=== PATIENT | female | born 1975 | race Caucasian/White ===

== ENCOUNTER 2018-01-09 10:03 | Outpatient (CLI) | payer OTHER ==
--- NOTE | 2018-01-09 11:10 | Mammography Report ---
DIAGNOSTIC BILATERAL MAMMOGRAM: 01/09/2018 CLINICAL INDICATION: Localized left breast pain. TECHNIQUE: Bilateral CC, MLO, laterally exaggerated CC, left true lateral views. Markers were placed at the site of maximal tenderness identified by the patient. This is the patient's baseline examination. FINDINGS: The breasts demonstrate heterogeneously dense fibroglandular parenchyma bilaterally. No suspicious masses, clustered microcalcifications, or regions of architectural distortion are identified. Specifically, no mammographic abnormality is appreciated in the left upper outer anterior breast, at the site indicated by the markers. Please also refer to left breast ultrasound of the same day. IMPRESSION: NEGATIVE EXAMINATION. RECOMMENDATION: Routine annual screening unless otherwise clinically indicated. BIRADS CATEGORY 1-NEGATIVE. STANDARD QUALIFYING STATEMENTS: 1. This examination was reviewed with the aid of Computer-Aided Detection (CAD). 2. A negative or benign imaging report should not delay biopsy if clinically suspicious findings are present. Consider surgical consultation if warranted. More than 5% of cancers are not identified by imaging. 3. Dense breasts may obscure an underlying neoplasm. TD: 01/09/2018 11:09
--- NOTE | 2018-01-09 11:12 | Ultrasound Report ---
LEFT BREAST ULTRASOUND: 01/09/2018 CLINICAL INDICATION: Localized left breast pain. TECHNIQUE: Real-time scanning was performed with parts sales representative static images obtained. FINDINGS: Ultrasound of the region of pain identified by the patient was performed. Unremarkable parenchymal lobules are seen. No discrete solid or cystic mass is identified. No sonographically suspicious findings are seen. IMPRESSION: NEGATIVE EXAMINATION. RECOMMENDATION: Routine annual screening unless otherwise clinically indicated. BIRADS CATEGORY 1 - NEGATIVE. TD: 01/09/2018 11:11
== END 2018-01-09 10:04 | disposition home or self-care (01) ==
LOC: DI 10:03
PROVIDERS: ATTEND Obstetrics & Gynecology
DX: N64.4 Mastodynia (principal)
CPT/HCPCS: 76642; 77066

== ENCOUNTER 2020-07-13 10:07 | Outpatient (CLI) | payer OTHER ==
--- NOTE | 2020-07-14 13:38 | Mammography Report ---
BILATERAL DIGITAL SCREENING MAMMOGRAM 3D/2D: 07/13/2020 CLINICAL: Routine screening. Comparison is made to exams dated: 01/09/2018 mammogram and 01/09/2018 ultrasound - [facility]. The tissue of both breasts is extremely dense, which lowers the sensitivity of mammograp hy. No significant masses, calcifications, or other findings are seen in either breast. There has been no significant interval change. IMPRESSION: NEGATIVE There is no mammographic evidence of malignancy. A 1 year screening mammogram is recommended. This exam was interpreted at Station ID: [id number]. NOTE: For mammograms, a report in lay terms will be sent to the patient. Approximately 15% of breast malignancies will not be visualized mammographically. In the management of a palpable breast mass, a negative mammogram must not discourage biopsy of a clinically suspicious lesion. Electronically Signed By: Jude Gallego M.D. aty/penrad:07/13/2020 10:45:25 ACR BI-RADS Category 1: Negative 3341F PARENCHYMAL PATTERN: (VD) - The breast(s) demonstrate(s) extremely dense parenchyma, limiting the sen sitivity of mammography. BI-RADS CATEGORY: (1) - 1 RECOMMENDATION: (ANNUAL) - Recommend routine annual screening mammography. [id number] 1 year screening LATERALITY: (B)
== END 2020-07-13 10:08 | disposition home or self-care (01) ==
LOC: DI 10:07
PROVIDERS: ATTEND Obstetrics & Gynecology
DX: Z12.31 Encounter for screening mammogram for malignant neoplasm of breast (principal)
CPT/HCPCS: 77063; 77067

== ENCOUNTER 2022-11-19 11:37 | Outpatient (CLI) | payer OTHER ==
--- NOTE | 2022-11-19 18:16 | Ultrasound Report ---
PROCEDURE: Pelvic w/Transvaginal INDICATIONS: PELVIC PAIN TECHNIQUE: Real-time scanning was performed of the pelvic organs, with image documentation. Additional endovagi nal scanning was necessary due to incomplete visualization of the adnexal and endometrial structures by transabdominal scanning. COMPARISON: None. FINDINGS: Uterus: Uterus is anteverted and normal in size at 7.6 x 4.7 x 5.5 cm. The myometrium is homogeneou s. The endometrium measures 5.1 mm in combined thickness. Intrauterine device in good position Ovaries: The right ovary measures 2.9 x 2.2 x 2.4 cm, with a calculated ovarian volume of 0.0 cc. T he left ovary measures 2.0 x 1.8 x 1.2 cm, with a calculated ovarian volume of 2.3 cc. The ovaries h ave a normal sonographic appearance. Less than 12 follicles can be seen in each ovary. No adnexal m asses are seen. Other: No pathologic free abdominal or pelvic fluid. IMPRESSION: Intrauterine device in good position Reviewed by: Luis Davidson MD on 11/19/2022 5:15 PM AKST Approved by: Luis Davidson MD on 11/19/2022 5:15 PM AKST Station ID: [id number]
== END 2022-11-19 11:38 | disposition home or self-care (01) ==
LOC: DI 11:37
PROVIDERS: ATTEND Nurse Practitioner
DX: R10.2 Pelvic and perineal pain (principal); Z97.5 Presence of (intrauterine) contraceptive device

== ENCOUNTER 2022-11-27 15:10 | Outpatient (CLI) | payer OTHER ==
--- NOTE | 2022-11-29 08:25 | Mammography Report ---
BILATERAL DIGITAL SCREENING MAMMOGRAM 3D/2D WITH EXAGGERATED CC: 11/27/2022 CLINICAL: Routine screening. Family history of breast cancer. Comparison is made to exams dated: 07/13/2020 mammogram and 01/09/2018 mammogram - [facility]. Both breasts are extremely dense, which lowers the sensitivity of mammography (category d />75% gland ular tissue). There is a new irregular high density focal asymmetry with an obscured and indistinct margin and fine calcifications in the right axillary tail. No other significant masses, calcifications, or other findings are seen in either breast. IMPRESSION: INCOMPLETE: NEEDS ADDITIONAL IMAGING EVALUATION The new irregular high density focal asymmetry is indeterminate. Additional views with possible ultr asound are recommended. Based on Tyrer-Cuzick model (a risk assessment model), the patient's lifetime risk is 30.2% and her 1 0 year risk is 6.7%. If a patient has an elevated risk, a more comprehensive evaluation should be con sidered and/or a referral to a genetic counselor. The [place] [employer], [employer], and NCCN Guidelines advise the consideration of Breast MRI as an adjunct to screening mammog melba in patients whose "Lifetime risk to develop breast cancer" is 20% or higher. This exam was interpreted at Station ID: [id number]. NOTE: For mammograms, a report in lay terms will be sent to the patient. Approximately 15% of breast malignancies will not be visualized mammographically. In the management of a palpable breast mass, a negative mammogram must not discourage biopsy of a clinically suspicious lesion. Electronically Signed By: Petra valenzuela/clover:11/28/2022 14:19:12 ACR BI-RADS Category 0: Incomplete 3340F PARENCHYMAL PATTERN: (VD) - The breast(s) demonstrate(s) extremely dense parenchyma, limiting the sen sitivity of mammography. BI-RADS CATEGORY: (0) - 0 Mammo and [place] [id number] Immediate follow-up LATERALITY: (B)
== END 2022-11-27 15:11 | disposition home or self-care (01) ==
LOC: DI.S 15:10
PROVIDERS: ATTEND Nurse Practitioner
DX: Z12.31 Encounter for screening mammogram for malignant neoplasm of breast (principal); R92.8 Other abnormal and inconclusive findings on diagnostic imaging of breast; Z80.3 Family history of malignant neoplasm of breast

== ENCOUNTER 2024-01-06 15:16 | Outpatient (CLI) | payer OTHER ==
--- NOTE | 2024-01-08 11:15 | Mammography Report ---
BILATERAL DIGITAL SCREENING MAMMOGRAM 3D/2D WITH EXAGGERATED CC: 01/06/2024 CLINICAL: Routine screening. Family history of breast cancer. Comparison is made to exams dated: 11/27/2022 mammogram, 07/13/2020 mammogram, and 12/20/2022 mammogram - [facility]. Both breasts are extremely dense, which lowers the sensitivity of mammography (category d />75% gland ular tissue). No significant masses, calcifications, or other findings are seen in either breast. There has been no significant interval change. IMPRESSION: NEGATIVE There is no mammographic evidence of malignancy. A 1 year screening mammogram is recommended. Based on Tyrer-Cuzick model (a risk assessment model), the patient's lifetime risk is 30.3% and her 1 0 year risk is 7.1%. If a patient has an elevated risk, a more comprehensive evaluation should be con sidered and/or a referral to a genetic counselor. The [employer], [employer], and NCCN Guidelines advise the consideration of Breast MRI as an adjunct to screening mammog melba in patients whose "Lifetime risk to develop breast cancer" is 20% or higher. This exam was interpreted at Station ID: [id number]. NOTE: For mammograms, a report in lay terms will be sent to the patient. Approximately 15% of breast malignancies will not be visualized mammographically. In the management of a palpable breast mass, a negative mammogram must not discourage biopsy of a clinically suspicious lesion. Electronically Signed By: Jaziel brown/clover:01/07/2024 12:14:50 letter sent: No_Letter ACR BI-RADS Category 1: Negative 3341F PARENCHYMAL PATTERN: (VD) - The breast(s) demonstrate(s) extremely dense parenchyma, limiting the sen sitivity of mammography. BI-RADS CATEGORY: (1) - 1 RECOMMENDATION: (ANNUAL) - Recommend routine annual screening mammography. [id number] 1 year screening LATERALITY: (B)
== END 2024-01-06 15:17 | disposition home or self-care (01) ==
LOC: DI.S 15:16
DX: Z12.31 Encounter for screening mammogram for malignant neoplasm of breast (principal); R92.343 Mammographic extreme density, bilateral breasts; E80.3 Defects of catalase and peroxidase